=== PATIENT | female | born 1970 | race Two or more races ===

== ENCOUNTER → 2019-05-27 | Day surgery (SDC) | payer OTHER ==
[~2019-05-27] MED LIST: NEXIUM 24HR20 MG PO
== END | disposition home or self-care (01) ==
LOC: ADM 05-18 12:15 → AMB-ENDOS 05:52
DX: K29.50 Unspecified chronic gastritis without bleeding (principal); K44.9 Diaphragmatic hernia without obstruction or gangrene